=== PATIENT | male | born 1990 | race Hispanic/Latino ===

== ENCOUNTER 2023-09-23 16:08 | Emergency (ER) | payer BC, SELFPAY ==
[2023-09-23 16:22] VITALS: BP 127/83; PULSE 76; RESP 16; TEMP 36.6; O2SAT 98
--- NOTE | 2023-09-23 16:32 | ED.SKABFB ---
HPI - Skin/Abscess/Foreign Bdy General Chief complaint: Skin/Abscess/Foreign Body Stated complaint: cold sore Time Seen by Provider: 09/23/23 16:24 Source: patient and RN notes reviewed Mode of arrival: ambulatory Limitations: no limitations History of Present Illness HPI narrative: Patient presents today complaining of a cold sore to his left upper lip since yesterday. States this is the 4th lesion in the last couple of months. He has been using topical medication without relief. Currently rates his pain 11/21. Denies recent illness. Related Data Allergies Allergy/AdvReac Type Severity Reaction Status Date / Time No Known Allergies Allergy Verified 09/23/23 16:12 Review of Systems Review of Systems: CONSTITUTIONAL: Denies body aches, fever, chills, or sweats. EYES: Denies visual changes, redness, or discharge. ENT: Denies rhinorrhea, congestion, sore throat, or otalgia. + cold sore CARDIOVASCULAR: Denies chest pain, palpitations, or edema. RESPIRATORY: Denies cough or dyspnea. GASTROINTESTINAL: Denies abdominal pain, nausea, vomiting, or diarrhea. GENITOURINARY: Denies dysuria or hematuria. SKIN: Denies rash, itching, or wounds. MUSCULOSKELETAL: Denies back pain, joint pain, or myalgia. NEUROLOGIC: Denies headache, numbness, tingling, or weakness. PSYCH: Denies depression or anxiety. PMFSH Comments At time of signature, I have reviewed and agree with nursing past medical, surgical, social and family history unless otherwise noted. Please see nursing chart for further information. There is no relevant family history pertinent to the presenting complaint Exam Narrative: GENERAL: Well-appearing, well-nourished, and in no acute distress. HEAD: Normocephalic, atraumatic. EYES: EOMI. No redness or drainage. Conjunctivae normal. ENT: Mucous membranes pink and moist. Nares clear. No rhinorrhea. 0.7mm herpetic lesion to the left lateral upper lip. Mildly tender to palpation. NECK: Normal AROM. Supple. No lymphadenopathy. CHEST: No respiratory distress. Clear to auscultation. HEART: Regular rate and rhythm. No murmur appreciated. EXTREMITIES: Normal range of motion. No edema. SKIN: Warm, dry, no rash. Capillary refill normal. NEURO: No focal deficits. Alert and oriented x3. Gait steady. PSYCH: Normal affect. No signs of depression or anxiety. Course Course Level of Care: Express Care Visit Vital Signs Vital signs: Vital Signs Temperature 97.9 F 09/23/23 16:22 Pulse Rate 76 09/23/23 16:22 Respiratory Rate 16 09/23/23 16:22 Blood Pressure 127/83 09/23/23 16:22 Pulse Oximetry 98 09/23/23 16:22 Oxygen Delivery Room Air 09/23/23 16:22 Temperature 97.9 F 09/23/23 16:22 Pulse Rate 76 09/23/23 16:22 Respiratory Rate 16 09/23/23 16:22 Blood Pressure 127/83 09/23/23 16:22 Pulse Oximetry 98 09/23/23 16:22 Oxygen Delivery Room Air 09/23/23 16:22 Reviewed MDM - Skin/Abscess/Foreign Bdy MDM Narrative Medical decision making narrative: Patient will be treated with Valtrex for his herpes lesion. Instructed patient to follow-up with a PCP due to his frequent outbreaks. Patient agrees with plan. Anticipatory guidance given. 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 Take Tylenol or ibuprofen for pain. Follow-up with a PCP due to your increased frequency of the lesions recently. At time of signature, I have reviewed and agree with nursing past medical, surgical, social and family history unless otherwise noted. Please see nursing chart for further information. T
== END 2023-09-23 16:41 | disposition home or self-care (01) ==
PROVIDERS: Emergency Provider Nurse Practitioner
DX: B00.1 Herpesviral vesicular dermatitis (principal)
CPT/HCPCS: 99203; G0463

== ENCOUNTER 2023-10-03 12:46 | Emergency (ER) | payer BC, SELFPAY ==
--- NOTE | ~2023-10-03 | XR_ITS ---
EXAMINATION: XR chest 2V DATE: 10/03/2023 13:19 INDICATION: Shortness of breath TECHNIQUE: PA and lateral views of the chest are obtained. COMPARISON: None available FINDINGS: There are airspace opacities of the lung bases. No pleural effusion or pneumothorax. The ca rdiomediastinal silhouette is normal. The visualized bones and soft tissues are unremarkable. IMPRESSION: 1. Bibasilar airspace opacities, consistent with atelectasis versus pneumonia. Reviewed, dictated and finalized at location [facility] [employer]
--- NOTE | 2023-10-03 12:56 | ED.GENADULT ---
HPI - General Adult General Chief complaint: Abdominal Pain Stated complaint: Stomach Pain Source: patient, RN notes reviewed and old records reviewed Mode of arrival: ambulatory Limitations: no limitations History of Present Illness HPI narrative: 32-year-old male patient presents to [facility] with complaints epigastric pain, shortness of breath this started 1 hour prior to arrival. Patient denies cough, congestion. Patient denies recent illness. Patient denies any health issues. Related Data Allergies Allergy/AdvReac Type Severity Reaction Status Date / Time No Known Allergies Allergy Verified 10/03/23 13:12 Review of Systems Constitutional: Constitutional: Reports no additional constitutional complaints, Denies body ache(s), Denies chills, Denies fatigue, Denies fever(s) and Denies headache(s) Eyes: Eyes: Reports no additional eye complaints and Denies blurry vision ENT: Reports system reviewed and no additional complaints, except as documented, Denies vertigo, Denies dizziness, Denies ear discharge, Denies otalgia, Denies facial pain, Denies headache(s), Denies nasal congestion, Denies nasal discharge, Denies sinus pain, Denies sinus pressure and Denies sore throat Cardiovascular: Cardiovascular: Reports no additional cardiovascular complaints, Reports chest pain, Denies chest pain at rest, Denies rapid heart rate and Reports dyspnea Respiratory: Respiratory: Reports no additional respiratory complaints, Denies chest congestion, Denies cough, Denies pain on inspiration, Denies pain with cough and Denies dyspnea Gastrointestinal: Gastrointestinal: Denies abdominal pain, Denies diarrhea, Denies nausea and Denies vomiting Integumentary/Breasts: Skin/Breast: Denies rash Neurologic: Reports system reviewed and no additional complaints, except as documented, Denies vertigo, Denies dizziness and Denies headache(s) Endocrine: Endocrine: Denies fatigue PMFSH Comments At the time of my signature, I reviewed and agree with the nursing past medical, surgical, social, and family history. There is no relevant family history pertinent to the patient complaint. Exam Const: General: cooperative, healthy appearing, no acute distress and well nourished Nutritional Appearance: well nourished Orientation/consciousness: patient oriented x3 Limitations: no limitations HENMT: Head: normal to inspection and normocephalic Face/Nose/Sinus: normal facial exam Face and sinus: normal facial exam Mouth: Yes moist mucous membranes Throat: uvular edema Eyes: General: appearance normal, both eyes and all related structures Sclera: sclerae normal Pupils: Equal, round and reactive pupils present Resp: Effort & Inspection: normal respiratory effort, able to speak in complete sentences, no audible wheezes, no cough, no respiratory distress and no retractions Auscultation: clear to auscultation bilaterally, no crackles, no rales, no rhonchi and no wheezes Cardio: Rate: regular rate Rhythm: regular rhythm GI: Inspection: no edema and non-distended GI Palp: Yes abdominal tenderness, Yes Soft to palpation, No Firmness to palpation present (GI), Yes Tenderness to palpation present (GI) ( right abdomen and epigastric area ), No Hepatomegaly present, No Splenomegaly present, No Hernia present, No Palpable mass present, No Rebound tenderness present and No Bladder palpation abnormal Auscultation: normal bowel sounds Skin: General skin exam: normal color and no rashes or lesions noted Neuro: General: patient oriented x3 Cranial nerves: Yes Equal, round and reactive pupils present Psych: Appearance: grossly normal Mental Status: mental status grossly normal Speech and movement: Normal speech and movement present Affect: normal affect Course Course Emergency Course: Patient is aware of diagnosis, understands and agrees to treatment plan.? Anticipatory guidance given.? Patient agrees to follow-up as directed and is aware of reasons to seek care at t
--- NOTE | 2023-10-03 13:10 | ECG_ITS ---
Measurements Intervals [place] Rate: 69 P: 33 LA: 154 QRS: 38 QRSD: 108 T: 1 QT: 371 QTc: 400 Interpretive Statements SINUS RHYTHM NO PREVIOUS ECG AVAILABLE FOR COMPARISON Electronically Signed On 10-03-2023 15:49:15 [employer] by Kael Masters M.D.
[2023-10-03 13:12] VITALS: BP 127/85; PULSE 75; RESP 20; TEMP 37; O2SAT 100
[2023-10-03] MEDS: LIDOCAINE HCL 2% VISC SOLN 15 ML UDC PO (13:31)
[2023-10-03] MEDS: MAG HYDROX/AL HYDROX/SIMETH 30 ML UDC PO (13:31)
== END 2023-10-03 13:57 | disposition home or self-care (01) ==
PROVIDERS: Emergency Provider Registered Nurse
DX: J18.1 Lobar pneumonia, unspecified organism (principal); K21.9 Gastro-esophageal reflux disease without esophagitis; Z20.822 Contact with and (suspected) exposure to COVID-19
CPT/HCPCS: 71046; 87426; 93005; 99213; A9270; G0463

== ENCOUNTER 2024-01-29 16:59 | Emergency (ER) | payer SELFPAY ==
--- NOTE | 2024-01-29 17:04 | ED.GENADULT ---
HPI - General Adult General Chief complaint: Chest Pain Stated complaint: Rib Pain Time Seen by Provider: 01/29/24 17:11 Source: patient, RN notes reviewed and old records reviewed Mode of arrival: ambulatory Limitations: no limitations History of Present Illness HPI narrative: 33-year-old male presents to the [facility] with bilateral lower rib and upper abdominal pain. Patient states that it feels like someone is grabbing the bottom of his ribs and pushing upwards. Constant pressure with nausea. Denies shortness of breath. Denies fevers. Had his gallbladder out several weeks ago, removed for cholelithiasis Patient reports that over the last 2 days the pain has been increasing and at times feels very sharp and feeling like there is someone sitting on him. Onset (ago): day(s) (2) Related Data Allergies Allergy/AdvReac Type Severity Reaction Status Date / Time No Known Allergies Allergy Verified 10/03/23 13:12 Review of Systems Review of Systems: All systems reviewed & are unremarkable except as noted in HPI and below Constitutional: Constitutional: Reports no additional constitutional complaints Eyes: Eyes: Reports no additional eye complaints ENT: Reports system reviewed and no additional complaints, except as documented Cardiovascular: Cardiovascular: Reports as per HPI, Denies chest pain and Denies dyspnea Respiratory: Respiratory: Reports no additional respiratory complaints, Denies chest congestion, Denies cough and Denies dyspnea Gastrointestinal: Gastrointestinal: Reports as per HPI, Reports abdominal pain, Reports nausea and Denies vomiting Musculoskeletal: Musculoskeletal: Reports no additional musculoskeletal complaints Integumentary/Breasts: Skin/Breast: Reports system reviewed and no additional complaints, except as docu Neurologic: Reports system reviewed and no additional complaints, except as documented Psychiatric: Psychiatric: Reports no additional psychiatric complaints Allergic/Immunologic: Allergic/Immunologic: Reports no additional allergic/immunologic complaints [facility] Surgical History Surgical History Hx of cholecystectomy Social History Social History (Updated 01/29/24 @ 19:11 by Iwona Real APRN) Gender identity (if verbalized by the patient): Male Comments At the time of my signature, I reviewed and agree with the nursing past medical, surgical, social, and family history. There is no relevant family history pertinent to the patient complaint. Exam Const: General: cooperative, healthy appearing, comfortable, no acute distress, well developed, alert and well nourished Nutritional Appearance: well nourished and obese Orientation/consciousness: patient oriented x3 Limitations: no limitations HENMT: Head: normal to inspection Ears: hearing grossly normal bilaterally and external ears normal Face/Nose/Sinus: Normal external nose present, Normal nares present, Normal nasal mucous membranes and turbinates present, normal facial exam and face symmetric Face and sinus: normal facial exam and face symmetric Eyes: General: appearance normal, both eyes and all related structures Alignment and Position: alignment normal Periorbital: periorbital findings normal Pupils: Equal, round and reactive pupils present EOM: EOMs intact bilaterally Neck: Neck: normal visual inspection, full ROM, no lymphadenopathy and no meningeal signs Chest: Chest palpation & inspection: normal inspection of the chest Resp: Effort & Inspection: normal respiratory effort and able to speak in complete sentences Auscultation: clear to auscultation bilaterally, no crackles, no rales, no rhonchi and no wheezes Cardio: Rate: regular rate Rhythm: regular rhythm GI: GI Palp: Yes abdominal tenderness (Upper RIght and left below ribs), Yes Soft to palpation and Yes Tenderness to palpation present (GI) Auscultation: normal bowel sounds Skin: General skin exa
--- NOTE | 2024-01-29 17:10 | ECG_ITS ---
Test Date: 2024-01-29 17:14:53 Measurements Intervals [place] Rate: 63 P: 31 AL: 155 QRS: 39 QRSD: 105 T: 1 QT: 384 QTc: 393 Interpretive Statements SINUS RHYTHM WITH SINUS ARRHYTHMIA No previous ECG available for comparison Electronically Signed On 01-31-2024 14:22:48 CDT by Kael Masters M.D.
[2024-01-29 17:16] VITALS: BP 127/91; PULSE 69; RESP 16; TEMP 36.8; O2SAT 99
== END 2024-01-29 17:34 | disposition short-term general hospital (02) ==
PROVIDERS: Emergency Provider Nurse Practitioner
DX: R07.89 Other chest pain (principal); R10.11 Right upper quadrant pain
CPT/HCPCS: 93005; 99213; G0463

== ENCOUNTER 2024-06-10 08:14 | Emergency (ER) | payer OTHER, SELFPAY ==
[2024-06-10 08:29] VITALS: BP 127/80; PULSE 75; RESP 17; TEMP 36.6; O2SAT 99
[2024-06-10 08:55] LABS: EDCOVIDSCREEN Negative (Negative); EDINFLUASCREEN Negative (Negative); EDINFLUBSCREEN Negative (Negative)
--- NOTE | 2024-06-10 08:55 | ED.URI ---
HPI - URI/Sore Throat General Chief Complaint: Upper Respiratory Infection Stated Complaint: runny nose / head and body aches / cough Time Seen by Provider: 06/10/24 08:46 Source: patient and RN notes reviewed Mode of arrival: ambulatory Limitations: no limitations History of Present Illness HPI Narrative: Patient presents today with a 3 day history of nasal congestion, headache, body aches, cough. Denies shortness of breath or chest pain. He has been taking some a decongestant and cough medicine without much relief. Related Data Allergies Allergy/AdvReac Type Severity Reaction Status Date / Time No Known Allergies Allergy Verified 06/10/24 08:24 Review of Systems Review of Systems: CONSTITUTIONAL: Denies fever, chills, or sweats.+ body aches EYES: Denies visual changes, redness, or discharge. ENT: Denies rhinorrhea, sore throat, or otalgia.+ congestion CARDIOVASCULAR: Denies chest pain, palpitations, or edema. RESPIRATORY: Denies dyspnea.+ cough GASTROINTESTINAL: Denies abdominal pain, nausea, vomiting, or diarrhea. GENITOURINARY: Denies dysuria or hematuria. SKIN: Denies rash, itching, or wounds. MUSCULOSKELETAL: Denies back pain, joint pain, or myalgia. NEUROLOGIC: Denies numbness, tingling, or weakness.+ headache PSYCH: Denies depression or anxiety. [facility] Surgical History Surgical History Hx of cholecystectomy Social History Social History Gender identity (if verbalized by the patient): Male Comments At time of signature, I have reviewed and agree with nursing past medical, surgical, social and family history unless otherwise noted. Please see nursing chart for further information. There is no relevant family history pertinent to the presenting complaint Exam Narrative: GENERAL: Well-appearing, well-nourished, and in no acute distress. HEAD: Normocephalic, atraumatic. EYES: EOMI. No redness or drainage. Conjunctivae normal. ENT: Mucous membranes pink and moist. Nares congestive. No rhinorrhea. TMs normal bilaterally. Throat normal. Uvula midline. NECK: Normal AROM. Supple. No lymphadenopathy. CHEST: No respiratory distress. Clear to auscultation. HEART: Regular rate and rhythm. No murmur appreciated. EXTREMITIES: Normal range of motion. No edema. SKIN: Warm, dry, no rash. Capillary refill normal. Normal skin turgor. NEURO: No focal deficits. Alert and oriented x3. Gait steady. PSYCH: Normal affect. No signs of depression or anxiety. Course Course Level of Care: Express Care Visit Vital Signs Vital signs: Vital Signs Temperature 97.8 F 06/10/24 08:29 Pulse Rate 75 06/10/24 08:29 Respiratory Rate 17 06/10/24 08:29 Blood Pressure 127/80 06/10/24 08:29 Pulse Oximetry 99 06/10/24 08:29 Oxygen Delivery Room Air 06/10/24 08:29 Temperature 97.8 F 06/10/24 08:29 Pulse Rate 75 06/10/24 08:29 Respiratory Rate 17 06/10/24 08:29 Blood Pressure 127/80 06/10/24 08:29 Pulse Oximetry 99 06/10/24 08:29 Oxygen Delivery Room Air 06/10/24 08:29 Review MDM - URI/Sore Throat MDM Narrative Medical decision making narrative: Testing negative. Symptoms likely viral in etiology. Discussed [id number] medication use and duration of illness. No prescription medications indicated at this time. Anticipatory guidance given. Differential Diagnosis Differential diagnosis: Likely upper respiratory infection, otitis media, viral infection, influenza and other (COVID-19) Lab Data Attestation: I reviewed the patient's lab results. Labs: Lab Results 06/10/24 Range/Units 08:53 POC Influenza A Ag Negative (Negative) POC Influenza B Ag Negative (Negative) POC SARS CoV-2 Ag Negative (Negative) Critical Care Time Critical Care Time Critical Care Time: No Discharge Plan Discharge Clinical Impression: Upper respiratory infection Qualifiers: URI type: unspecified URI Qualified Code(s): J06.9 - Acute upper respiratory infection, unspecified Patient Disposition: Home, Self-Care Condition: Stable Instructions: Upper Respiratory Infection (DC) Additional Instructions: Your COVID-19 and influenza swabs were negative today. Your Symptoms are likely due to a viral illness, which is not treated with antibiotics. Virus symptoms can last for up to 7-10days. Take Tylenol or ibuprofen for pain or fever. Consider a steroid nasal spray such as Flonase or saline nasal spray to help break up any nasal congestion. Take the Tessalon Perles for cough if needed. Rest and stay hydrated. Follow up with your PCP in 7 days if symptoms are not improving. Go to the ER immediately if you develop shortness of breath, difficulty swallowing, or any other concerning symptoms. Your blood pressure was elevated above 120/80 today at Urgent Care. This puts you above the threshold for follow up. Please schedule a followup visit with your personal physician as soon as possible, for further evaluation and treatment. Even blood pressure exceeding 120/80 may indicate pre-hypertension. Prescriptions: New benzonatate 200 mg capsule 200 mg PO TID PRN (Reason: cough) Qty: 30 0RF Follow-up/Referrals: PHYSICIAN,MANAGER [employer]EARCH [employer]ELOPMENT [Primary Care Provider] - Stand Alone Forms: Work/School Release IP Time of Disposition: 08:58
== END 2024-06-10 09:00 | disposition home or self-care (01) ==
PROVIDERS: Emergency Provider Nurse Practitioner
DX: J06.9 Acute upper respiratory infection, unspecified (principal); Z20.822 Contact with and (suspected) exposure to COVID-19
CPT/HCPCS: 87426; 87804; 99213; G0463

== ENCOUNTER 2025-05-13 10:23 | Emergency (ER) | payer OTHER, SELFPAY ==
--- NOTE | 2025-05-13 10:26 | ED.URI ---
HPI - URI/Sore Throat General Chief Complaint: Upper Respiratory Infection Stated Complaint: Sinus Infection Time Seen by Provider: 05/13/25 10:40 Source: patient Mode of arrival: ambulatory Limitations: no limitations History of Present Illness HPI Narrative: Luther is a 34-year-old male patient presenting to the clinic today with complaints of a possible sinus infection and possible balanitis to his penis. He reports this sinus congestion, pressure, headache, and cough started 5 days ago. He has felt feverish but has not checked his temperature. Has taken Tylenol for his symptoms. Rates his pain currently as 6/10. Denies any shortness of breath or chest pain. Also reporting a itchy burning rash to his foreskin/head of his penis. Has been applying Lamisil cream to the area without relief. States this started 1 week ago when it started to get warm outside again. Denies any with urination. Denies any penile discharge. Denies any concern for STIs. Related Data Allergies Allergy/AdvReac Type Severity Reaction Status Date / Time No Known Allergies Allergy Verified 05/13/25 10:35 Review of Systems Review of Systems: Pertinent positives per HPI. Patient denies any visual changes, dizziness, shortness of breath, chest pain, palpitations, nausea, vomiting, diarrhea, constipation, abdominal pain, or any urinary issues. PMFSH Surgical History Surgical History (Reviewed 06/10/24 @ 09:01 by Salome Mahmood, [facility], ) Hx of cholecystectomy Social History Social History Gender identity (if verbalized by the patient): Male Comments At the time of my signature, I reviewed and agree with the nursing past medical, surgical, social, and family history. There is no relevant family history pertinent to the patient complaint. Exam Narrative: General: Well-developed, well nourished, in no apparent distress Head: Normocephalic, atraumatic Eyes: Pupils equally round and reactive to light bilaterally, EOM intact, sclera and conjunctive clear, no discharge, lids normal Ears: TMs intact and clear, ear canals clear, no drainage, grossly hearing normal. Nose: Nares patent, clear nasal discharge, monitor inflammation, maxillary and frontal sinus tenderness. Mouth: Oral pharynx red without lesions or masses, good dentition, MMM. Postnasal drip Neck: Supple, trachea midline, no enlargement of anterior or posterior cervical nodes, no thyroid masses or goiter palpable. Cardio: Regular rate and rhythm, s1 and s2 normal, no murmur appreciated. Resp: Clear to auscultation bilaterally, no rhonchi, rales, wheezing or rubs : Uncircumcised male with red streaky rash with satellite lesions to the foreskin and to the head of the penis was some yellow crusting. Course Course Emergency Course: Portions of this record may have been created with voice recognition software. Level of Care: Express Care Visit Vital Signs Vital signs: Vital signs reviewed MDM - URI/Sore Throat MDM Narrative Medical decision making narrative: At the time of visit patient is resting comfortably on the exam table. Patient appears to be nontoxic. Complaints of a possible sinus infection and possible balanitis to his penis. He reports this sinus congestion, pressure, headache, and cough started 5 days ago. He has felt feverish but has not checked his temperature. Has taken Tylenol for his symptoms. Rates his pain currently as 6/10. Denies any shortness of breath or chest pain. Also reporting a itchy burning rash to his foreskin/head of his penis. Has been applying Lamisil cream to the area without relief. States this started 1 week ago when it started to get warm outside again. Denies any with urination. Denies any penile discharge. Denies any concern for STIs. On exam patient has clear nasal discharge, moderate anterior turbinate inflammation, TMs clear and intact bilaterally, oral pharynx red with postnasal drip, lung sounds are clear, heart rates regular rate and rhythm, patient is uncircumcised male without corneal adhesions with red streaky rash with satellite lesions to the foreskin and to the head of the penis was some yellow crusting. Plan: I suspect patient has viral sinusitis/balanitis. Prescriptions for mupirocin cream and miconazole cream was sent to the pharmacy. Reason for the mupirocin cream is because patient was using Lamisil without relief so will cover for a bacterial infection. Supportive measures were discussed with the patient and they voiced understanding discharge instructions and agrees to treatment plan. Return precautions reviewed Differential Diagnosis Differential diagnosis: Likely upper respiratory infection, otitis media, sinusitis, viral infection, bronchitis, influenza, pharyngitis and other (Balanitis) Discharge Plan Discharge Clinical Impression: Balanitis, Viral sinusitis Patient Disposition: Home Condition: Stable Instructions: Antibiotic Form, Sinusitis (ED), Balanitis (ED) Additional Instructions: Sinusitis discharge instructions: Increase fluids and stay well hydrated May take Tylenol or motrin as directed on bottle for pain/fever May use Flonase 1 spray in each nare daily May take OTC antihistamines such as Zyrtec or Claritin daily as directed on bottle May apply Vicks vapor rub to chest to open sinuses Sinus rinses for congestion Cepacol spray, cough drops, throat lozenges, warm tea with honey/lemon, gargle salt water to soothe throat BRAT diet for diarrhea Clear liquids x 24 hours then advance as tolerated for nausea/vomiting Go to the ED if you develop a worsening in your condition- high fever not controlled by Tylenol or Motrin, dehydration, weakness, lethargy, shortness of breath, or chest pain. Follow up with your PCP in 3-5 days if symptoms persist. Balanitis discharge instructions: Apply mupirocin cream and miconazole cream as directed Keep area clean and dry Practice proper hygiene measures-wash with soap water and pat dry and replace the foreskin No sexual intercourse until symptoms have all resolved Follow-up with your PCP in 1 week if symptoms persist or sooner if they worsen Patient Language: Slovenian Prescriptions: New miconazole nitrate 2 % cream 1 applic topical BID 14 Days Qty: 28 0RF mupirocin [Centany] 2 % ointment 1 applic topical BID 14 Days Qty: 22 0RF Follow-up/Referrals: PHYSICIAN,DEEP FRYER ASSEMBLER [Primary Care Provider, Internal Medicine] Stand Alone Forms: Work/School Release IP Time of Disposition: 10:43 Quality NIHSS Nursing Documentation ED NIHSS nursing documentation: reviewed/agree
[2025-05-13 10:30] VITALS: BP 131/81; PULSE 84; RESP 16; TEMP 36; O2SAT 98
--- OUTSIDE RECORDS SUMMARY | 2025-05-13 11:11 | XMS_ITS | Clinical Summary ---
Author Organization [facility] Address [address] [place] [id number] Care Team Providers Care Youth Development Professional Name Role Phone Unavailable Primary Care Provider Unavailabl e Social History Tobacco Use Types Packs/Day Years Used Date Smoking Tobacco: Never Assessed Sex and Gender Information Value Date Recorded Sex Assigned at Not on file Legal Sex Male 8:00 AM CDT Gender Identity Not on file Sexual Orientation Not on file Plan of Treatment Health Maintenance Due Date Last Done Comments Annual Physical 11/09/1994 Hepatitis C 11/09/2009 DTaP, Tdap and Td Vaccines ( 1 - Tdap) 11/09/2010 Hepatitis B Vaccines (1 of 3 - 19+ 3-dose series) 11/09/2010 HPV Vaccines (1 - 3-dose SCD M series) 11/09/2018 PHQ-2 (Physician [place]) 08/14/2024 COVID-19 Vaccine (1 - 2023-2 5 season) 2025 Meningococcal B Vaccine Aged Out No l onger eligible based on patient's age to complete this topic Meningococcal Vaccine Aged Out No rose marshal eligible based on patient's age to complete this topic Pneumococcal Vaccine: Pediat rics (0 to 5 Years) and At-Risk Patients (6 to 49 Years) Aged Out No longer eligible b ased on patient's age to complete this topic RSV Immunizations Under 20 Months Aged Out No longer eligible based on patient's age to complete this topic Insurance [employer]
== END 2025-05-13 11:04 | disposition home or self-care (01) ==
PROVIDERS: Emergency Provider Nurse Practitioner Family
DX: N48.1 Balanitis (principal); J32.9 Chronic sinusitis, unspecified
CPT/HCPCS: 99213; G0463